=== PATIENT | female | born 1960 | race Caucasian/White ===

== ENCOUNTER 2024-01-28 12:31 | Emergency (ER) | payer MEDICARE, MEDICAID ==
[~2024-01-28] VITALS: Ht 165.1 cm; Wt 63.5 kg
[2024-01-28 12:39] VITALS: BP 139/86; PULSE 89; RESP 16; TEMP 97.8; O2SAT 91
[2024-01-28 13:49] LABS: BASOPHILS % (AUTO) 0.7 % (0.0-2.0); EOSINOPHILS # (AUTO) 0.1 K/uL (0-0.4); EOSINOPHILS % (AUTO) 2.3 % (0.0-4.0); HEMATOCRIT 35.3 % (36-48); HEMOGLOBIN 11.4 g/dL (12.0-16.0); LYMPHOCYTES % (AUTO) 27.1 % (20.5-51.1); MEAN CORPUSCULAR HEMOGLOBIN 30 pg (27-31); MEAN CORPUSCULAR HGB CONC 32 g/dL (33-37); MEAN CORPUSCULAR VOLUME 91.9 fL (80-94); MONOCYTES # (AUTO) 0.3 K/uL (0.8-1.0); MONOCYTES % (AUTO) 8.5 % (1.7-9.3); NEUTROPHILS # (AUTO) 2.3 K/uL (1.8-7.7); NEUTROPHILS % (AUTO) 61.4 % (42.2-75.2); PLATELET COUNT (AUTO) 189 K/uL (140-450); RED BLOOD CELL COUNT(AUTO) 3.84 MIL/uL (4.20-5.40); RED CELL DISTRIBUTION WIDTH 17.2 % (11.6-13.7); WHITE BLOOD COUNT (AUTO) 3.7 K/uL (4.8-10.8)
[2024-01-28 13:59] LABS: ANION GAP 12.3 (8-16); CALCIUM 8.8 mg/dL (8.5-10.1); CARBON DIOXIDE 22.8 mmol/L (21-32); CREATININE 1.4 mg/dL (0.6-1.3); POTASSIUM 4.1 mmol/L (3.5-5.1)
[2024-01-28] MEDS: FUROSEMIDE 40 MG/4 ML VIAL IVP ONE (14:56)
[2024-01-28 22:55] VITALS: BP 139/74; PULSE 98; RESP 26; TEMP 98; O2SAT 98
== END 2024-01-28 23:12 | disposition short-term general hospital (02) ==
LOC: MED 12:31
DX: I50.9 Heart failure, unspecified (principal); J96.91 Respiratory failure, unspecified with hypoxia; Z20.822 Contact with and (suspected) exposure to COVID-19; J44.9 Chronic obstructive pulmonary disease, unspecified; E78.5 Hyperlipidemia, unspecified; F17.210 Nicotine dependence, cigarettes, uncomplicated; Z88.8 Allergy status to other drugs, medicaments and biological substances
CPT/HCPCS: 36415; 71045; 80048; 83880; 84484; 85025; 87426; 93005; 96374; 99291; J1940

== ENCOUNTER 2024-05-01 14:19 | Inpatient (IN) | payer MEDICARE, MEDICAID ==
[~2024-05-01] VITALS: Ht 162.6 cm; Wt 59.0 kg
[2024-05-01 14:25] VITALS: BP 153/84; PULSE 74; RESP 20; TEMP 98.6; O2SAT 100
[2024-05-01 15:29] LABS: BASOPHILS % (AUTO) 0.4 % (0.0-2.0); HEMATOCRIT 36.1 % (36-48); HEMOGLOBIN 11.3 g/dL (12.0-16.0); LYMPHOCYTES # (AUTO) 0.7 K/uL (2.5-16.5); LYMPHOCYTES % (AUTO) 22.3 % (20.5-51.1); MEAN CORPUSCULAR HEMOGLOBIN 31 pg (27-31); MEAN CORPUSCULAR HGB CONC 31 g/dL (33-37); MEAN CORPUSCULAR VOLUME 98.6 fL (80-94); MONOCYTES # (AUTO) 0.2 K/uL (0.8-1.0); NEUTROPHILS # (AUTO) 2.2 K/uL (1.8-7.7); NEUTROPHILS % (AUTO) 69.3 % (42.2-75.2); PLATELET COUNT (AUTO) 155 K/uL (140-450); RED BLOOD CELL COUNT(AUTO) 3.67 MIL/uL (4.20-5.40); RED CELL DISTRIBUTION WIDTH 18.3 % (11.6-13.7); WHITE BLOOD COUNT (AUTO) 3.2 K/uL (4.8-10.8)
[2024-05-01 15:47] LABS: LIPASE 51 U/L (16-77)
[2024-05-01 15:52] LABS: ALBUMIN 2.9 g/dL (3.4-5.0); ANION GAP 15.3 (8-16); CALCIUM 8.5 mg/dL (8.5-10.1); CARBON DIOXIDE 20.6 mmol/L (21-32); CREATININE 2.1 mg/dL (0.6-1.3); POTASSIUM 3.9 mmol/L (3.5-5.1); TOTAL BILIRUBIN 0.9 mg/dL (0.0-1.0); TOTAL PROTEIN, SERUM 7.4 g/dL (6.4-8.2)
[2024-05-01 17:30] VITALS: O2SAT 100
[2024-05-01] MEDS ORDERED: ASPIRIN 81 MG TAB.CHEW ONE (17:56)
[2024-05-01] MEDS: ASPIRIN 81 MG TAB.CHEW PO ONE (18:02)
[2024-05-01] MEDS: FUROSEMIDE 40 MG/4 ML VIAL IVP SCH (18:20)
[2024-05-01] MEDS: ZOLPIDEM 5 MG TAB PO SCH (21:15)
[2024-05-01 21:19] VITALS: O2SAT 100
[2024-05-01 21:50] VITALS: BP 145/83; PULSE 84; RESP 18; TEMP 97.1; O2SAT 100
[2024-05-01] MEDS ORDERED: ONDANSETRON 4 MG/2 ML VIAL IVP PRN (22:00)
[2024-05-01] MEDS ORDERED: NITROGLYCERIN 0.4 MG TAB SL PRN (22:00)
[2024-05-01] MEDS ORDERED: ASPIRIN 81 MG TAB.CHEW PO SCH (22:00)
[2024-05-01] MEDS: carvediloL 3.125 MG TAB PO SCH (23:53)
[2024-05-02] VITALS: PULSE 89
[2024-05-02 04:00] VITALS: BP 136/89; PULSE 76; PULSE 79; PULSE 89; RESP 18; TEMP 97.8; O2SAT 100
[2024-05-02 05:53] LABS: BASOPHILS % (AUTO) 0.6 % (0.0-2.0); EOSINOPHILS # (AUTO) 0.1 K/uL (0-0.4); EOSINOPHILS % (AUTO) 2.3 % (0.0-4.0); HEMATOCRIT 34.4 % (36-48); HEMOGLOBIN 10.9 g/dL (12.0-16.0); MEAN CORPUSCULAR HEMOGLOBIN 31 pg (27-31); MEAN CORPUSCULAR HGB CONC 32 g/dL (33-37); MEAN CORPUSCULAR VOLUME 98.3 fL (80-94); MONOCYTES # (AUTO) 0.3 K/uL (0.8-1.0); MONOCYTES % (AUTO) 7.2 % (1.7-9.3); NEUTROPHILS # (AUTO) 2.4 K/uL (1.8-7.7); NEUTROPHILS % (AUTO) 63.9 % (42.2-75.2); PLATELET COUNT (AUTO) 138 K/uL (140-450); RED CELL DISTRIBUTION WIDTH 17.4 % (11.6-13.7); WHITE BLOOD COUNT (AUTO) 3.7 K/uL (4.8-10.8)
[2024-05-02 06:28] LABS: ALBUMIN 2.7 g/dL (3.4-5.0); ANION GAP 14.9 (8-16); CALCIUM 8.1 mg/dL (8.5-10.1); POTASSIUM 3.9 mmol/L (3.5-5.1); TOTAL BILIRUBIN 0.8 mg/dL (0.0-1.0)
[2024-05-02 08:00] VITALS: BP 129/69; PULSE 76; RESP 20; TEMP 97.1; O2SAT 98
[2024-05-02] MEDS: PANTOPRAZOLE 40 MG INJ VIAL IVP SCH (09:36)
[2024-05-02] MEDS: ASPIRIN 81 MG TAB.CHEW PO SCH (09:36)
[2024-05-02] MEDS: LOSARTAN 25 MG TAB PO SCH (09:37)
[2024-05-02 12:00] VITALS: BP 141/92; PULSE 83; RESP 20; TEMP 97.8; O2SAT 98
[2024-05-02 16:00] VITALS: BP 133/87; PULSE 83; RESP 20; TEMP 97.7; O2SAT 96
[2024-05-02] MEDS: FUROSEMIDE 20 MG/2 ML VIAL IVP SCH (17:02)
[2024-05-02] MEDS: HYDROcodone/APAP 5/325 MG 1 TAB TAB PO PRN (18:09)
[2024-05-02 20:00] VITALS: BP 126/79; PULSE 78; PULSE 82; RESP 19; RESP 23; TEMP 97.7; O2SAT 92; O2SAT 99
[2024-05-02] MEDS: QUEtiapine FUMARATE 25 MG TAB PO SCH (20:07)
[2024-05-02] MEDS: carvediloL 6.25 MG TAB PO SCH (20:08)
[2024-05-02] MEDS ORDERED: SIMVASTATIN 20 MG TAB PO SCH (21:00)
[2024-05-03] VITALS (7 sets, daily range): BP systolic 114–147; BP diastolic 66–83; PULSE 71–81; RESP 18–23; TEMP 97.4–98; O2SAT 92–100
[2024-05-03 07:03] LABS: BASOPHILS % (AUTO) 0.9 % (0.0-2.0); EOSINOPHILS # (AUTO) 0.1 K/uL (0-0.4); EOSINOPHILS % (AUTO) 2.8 % (0.0-4.0); HEMATOCRIT 32.4 % (36-48); HEMOGLOBIN 10.3 g/dL (12.0-16.0); LYMPHOCYTES % (AUTO) 30.6 % (20.5-51.1); MEAN CORPUSCULAR HEMOGLOBIN 31 pg (27-31); MEAN CORPUSCULAR HGB CONC 32 g/dL (33-37); MEAN CORPUSCULAR VOLUME 97.4 fL (80-94); MONOCYTES # (AUTO) 0.3 K/uL (0.8-1.0); MONOCYTES % (AUTO) 9.9 % (1.7-9.3); NEUTROPHILS # (AUTO) 1.8 K/uL (1.8-7.7); NEUTROPHILS % (AUTO) 55.8 % (42.2-75.2); PLATELET COUNT (AUTO) 132 K/uL (140-450); RED BLOOD CELL COUNT(AUTO) 3.33 MIL/uL (4.20-5.40); RED CELL DISTRIBUTION WIDTH 17.4 % (11.6-13.7); WHITE BLOOD COUNT (AUTO) 3.2 K/uL (4.8-10.8)
[2024-05-03 08:06] LABS: ALBUMIN 2.3 g/dL (3.4-5.0); ANION GAP 13.9 (8-16); CARBON DIOXIDE 20.1 mmol/L (21-32); CREATININE 1.9 mg/dL (0.6-1.3); TOTAL BILIRUBIN 0.9 mg/dL (0.0-1.0); TOTAL PROTEIN, SERUM 6.3 g/dL (6.4-8.2)
[2024-05-03] MEDS: LOSARTAN 25 MG TAB PO SCH (08:39)
[2024-05-03] MEDS: ATORVASTATIN 20 MG TAB PO SCH (08:39)
[2024-05-03] MEDS ORDERED: QUET25TA46 PO (09:30)
[2024-05-03] MEDS ORDERED: FURO-572 PO (09:30)
[2024-05-03] MEDS ORDERED: LOSA-269 PO (09:30)
[2024-05-03] MEDS ORDERED: CARV6.252 PO (09:30)
[2024-05-04 04:00] VITALS: BP 126/69; RESP 18; TEMP 97.5; O2SAT 97
[2024-05-04 07:26] LABS: BASOPHILS % (AUTO) 0.6 % (0.0-2.0); EOSINOPHILS # (AUTO) 0.1 K/uL (0-0.4); EOSINOPHILS % (AUTO) 2.2 % (0.0-4.0); HEMATOCRIT 34.5 % (36-48); HEMOGLOBIN 10.8 g/dL (12.0-16.0); LYMPHOCYTES # (AUTO) 0.8 K/uL (2.5-16.5); LYMPHOCYTES % (AUTO) 23.9 % (20.5-51.1); MEAN CORPUSCULAR HEMOGLOBIN 31 pg (27-31); MEAN CORPUSCULAR HGB CONC 31 g/dL (33-37); MEAN CORPUSCULAR VOLUME 97.5 fL (80-94); MONOCYTES # (AUTO) 0.3 K/uL (0.8-1.0); MONOCYTES % (AUTO) 10.2 % (1.7-9.3); NEUTROPHILS # (AUTO) 2.1 K/uL (1.8-7.7); NEUTROPHILS % (AUTO) 63.1 % (42.2-75.2); PLATELET COUNT (AUTO) 130 K/uL (140-450); RED BLOOD CELL COUNT(AUTO) 3.54 MIL/uL (4.20-5.40); RED CELL DISTRIBUTION WIDTH 17.1 % (11.6-13.7); WHITE BLOOD COUNT (AUTO) 3.4 K/uL (4.8-10.8)
[2024-05-04 08:00] VITALS: BP 135/79; PULSE 62; RESP 18; TEMP 96.4; O2SAT 100
[2024-05-04] MEDS: LORazepam 1 MG TAB PO PRN (10:42)
[2024-05-04 16:00] VITALS: BP 132/74; PULSE 74; RESP 18; TEMP 97.4; O2SAT 98
[2024-05-04 20:00] VITALS: BP 175/80; PULSE 62; PULSE 87; RESP 18; RESP 21; TEMP 98.3; O2SAT 100; O2SAT 96
[2024-05-04 20:05] VITALS: BP 153/85
[2024-05-05 07:39] LABS: BASOPHILS % (AUTO) 0.4 % (0.0-2.0); EOSINOPHILS # (AUTO) 0.1 K/uL (0-0.4); EOSINOPHILS % (AUTO) 2.7 % (0.0-4.0); HEMOGLOBIN 10.1 g/dL (12.0-16.0); LYMPHOCYTES % (AUTO) 27.7 % (20.5-51.1); MEAN CORPUSCULAR HEMOGLOBIN 31 pg (27-31); MEAN CORPUSCULAR HGB CONC 32 g/dL (33-37); MEAN CORPUSCULAR VOLUME 97.4 fL (80-94); MONOCYTES # (AUTO) 0.4 K/uL (0.8-1.0); MONOCYTES % (AUTO) 12.9 % (1.7-9.3); NEUTROPHILS % (AUTO) 56.3 % (42.2-75.2); PLATELET COUNT (AUTO) 124 K/uL (140-450); RED BLOOD CELL COUNT(AUTO) 3.28 MIL/uL (4.20-5.40); RED CELL DISTRIBUTION WIDTH 16.6 % (11.6-13.7); WHITE BLOOD COUNT (AUTO) 3.5 K/uL (4.8-10.8)
[2024-05-05 08:31] VITALS: PULSE 68; RESP 20; O2SAT 99
[2024-05-05 11:13] LABS: ANION GAP 10.6 (8-16); CALCIUM 8.1 mg/dL (8.5-10.1); CARBON DIOXIDE 24.4 mmol/L (21-32); CREATININE 1.6 mg/dL (0.6-1.3)
== END 2024-05-05 16:30 | DRG 206 ==
LOC: MED 14:19 → MTU 18:11
PROVIDERS: ADMIT Student in an Organized Health Care Education/Training Program; ATTEND Student in an Organized Health Care Education/Training Program
DX: M94.0 Chondrocostal junction syndrome [Tietze] (principal); J44.1 Chronic obstructive pulmonary disease with (acute) exacerbation; E44.1 Mild protein-calorie malnutrition; N17.9 Acute kidney failure, unspecified; K50.90 Crohn's disease, unspecified, without complications; R45.851 Suicidal ideations; R65.10 Systemic inflammatory response syndrome (SIRS) of non-infectious origin without acute organ dysfunction; I50.9 Heart failure, unspecified; F32.A Depression, unspecified; F17.200 Nicotine dependence, unspecified, uncomplicated; F20.9 Schizophrenia, unspecified; Z88.1 Allergy status to other antibiotic agents; Z68.22 Body mass index [BMI] 22.0-22.9, adult; R06.03 Acute respiratory distress
CPT/HCPCS: 36415; 71045; 80048; 80053; 83690; 83880; 84484; 85025; 93005; 96374; 97110; 97116; 97163-GP; 97530; 99285; J1940; J2470; Q0092

== ENCOUNTER 2024-05-15 18:00 | Emergency (ER) | payer MEDICARE, MEDICAID ==
[~2024-05-15] VITALS: Ht 167.6 cm; Wt 63.5 kg
[~2024-05-15 18:00] MED LIST: CARV6.252 PO; FURO-572 PO; LOSA-269 PO; QUET25TA46 PO
[2024-05-15 18:23] VITALS: BP 136/78; PULSE 74; RESP 18; TEMP 97.9; O2SAT 90
[2024-05-15] MEDS: metroNIDAZOLE 500 MG/NS PREMIX 100 ML IV ONE (19:13)
[2024-05-15 19:27] LABS: BASOPHILS % (AUTO) 0.6 % (0.0-2.0); EOSINOPHILS # (AUTO) 0.1 K/uL (0-0.4); EOSINOPHILS % (AUTO) 3.8 % (0.0-4.0); HEMATOCRIT 31.7 % (36-48); HEMOGLOBIN 10.1 g/dL (12.0-16.0); LYMPHOCYTES # (AUTO) 0.9 K/uL (2.5-16.5); LYMPHOCYTES % (AUTO) 27.9 % (20.5-51.1); MEAN CORPUSCULAR HEMOGLOBIN 30 pg (27-31); MEAN CORPUSCULAR HGB CONC 32 g/dL (33-37); MEAN CORPUSCULAR VOLUME 95.5 fL (80-94); MONOCYTES # (AUTO) 0.3 K/uL (0.8-1.0); MONOCYTES % (AUTO) 8.1 % (1.7-9.3); NEUTROPHILS # (AUTO) 1.9 K/uL (1.8-7.7); NEUTROPHILS % (AUTO) 59.6 % (42.2-75.2); PLATELET COUNT (AUTO) 148 K/uL (140-450); RED BLOOD CELL COUNT(AUTO) 3.32 MIL/uL (4.20-5.40); RED CELL DISTRIBUTION WIDTH 16.5 % (11.6-13.7); WHITE BLOOD COUNT (AUTO) 3.1 K/uL (4.8-10.8)
[2024-05-15 19:31] LABS: ANION GAP 15.6 (8-16); CALCIUM 9.3 mg/dL (8.5-10.1); CARBON DIOXIDE 24.5 mmol/L (21-32); CREATININE 1.3 mg/dL (0.6-1.3); POTASSIUM 4.1 mmol/L (3.5-5.1)
[2024-05-15] MEDS ORDERED: SACU1TAB PO (20:06)
[2024-05-15] MEDS ORDERED: METO25TE2 PO (20:06)
[2024-05-15] MEDS ORDERED: FURO-572 PO (20:06)
[2024-05-15] MEDS ORDERED: SPIR50TA PO (20:06)
[2024-05-15] MEDS ORDERED: SYN.05 PO (20:06)
[2024-05-15] MEDS ORDERED: CARV12.5 PO (20:06)
[2024-05-15] MEDS ORDERED: ESCI5TAB PO (20:06)
[2024-05-15] MEDS ORDERED: METR-435 PO (23:43)
[2024-05-16 05:21] VITALS: BP 132/88; PULSE 83; RESP 17; TEMP 98; O2SAT 97
== END 2024-05-16 05:21 | disposition home or self-care (01) ==
LOC: MED 18:00
DX: K52.9 Noninfective gastroenteritis and colitis, unspecified (principal); I50.9 Heart failure, unspecified; F17.210 Nicotine dependence, cigarettes, uncomplicated; J44.9 Chronic obstructive pulmonary disease, unspecified; K21.9 Gastro-esophageal reflux disease without esophagitis; I10 Essential (primary) hypertension; Z90.49 Acquired absence of other specified parts of digestive tract; Z98.890 Other specified postprocedural states; Z79.899 Other long term (current) drug therapy; Z88.8 Allergy status to other drugs, medicaments and biological substances
CPT/HCPCS: 36415; 74176; 80048; 83880; 84484; 85025; 87040; 93005; 96365; 99285; J3490; J7030

== ENCOUNTER 2024-06-02 14:03 | Emergency (ER) | payer MEDICARE, MEDICAID ==
[~2024-06-02] VITALS: Ht 162.6 cm; Wt 63.5 kg
[~2024-06-02 14:03] MED LIST changes: +CARV12.5 PO; +ESCI5TAB PO; +METO25TE2 PO; +METR-435 PO; +SACU1TAB PO; +SPIR50TA PO; +SYN.05 PO
[2024-06-02 14:10] VITALS: BP 137/63; PULSE 68; RESP 20; TEMP 98; O2SAT 97
[2024-06-02 14:33] VITALS: TEMP 98
[2024-06-02 14:35] LABS: BASOPHILS % (AUTO) 0.9 % (0.0-2.0); EOSINOPHILS # (AUTO) 0.1 K/uL (0-0.4); EOSINOPHILS % (AUTO) 1.3 % (0.0-4.0); HEMATOCRIT 34.2 % (36-48); LYMPHOCYTES % (AUTO) 20.7 % (20.5-51.1); MEAN CORPUSCULAR HEMOGLOBIN 31 pg (27-31); MEAN CORPUSCULAR HGB CONC 32 g/dL (33-37); MEAN CORPUSCULAR VOLUME 96.3 fL (80-94); MONOCYTES # (AUTO) 0.5 K/uL (0.8-1.0); MONOCYTES % (AUTO) 10.4 % (1.7-9.3); NEUTROPHILS # (AUTO) 3.1 K/uL (1.8-7.7); NEUTROPHILS % (AUTO) 66.7 % (42.2-75.2); PLATELET COUNT (AUTO) 160 K/uL (140-450); RED BLOOD CELL COUNT(AUTO) 3.55 MIL/uL (4.20-5.40); RED CELL DISTRIBUTION WIDTH 18.4 % (11.6-13.7); WHITE BLOOD COUNT (AUTO) 4.7 K/uL (4.8-10.8)
[2024-06-02 14:42] LABS: ANION GAP 15.1 (8-16); CALCIUM 9.5 mg/dL (8.5-10.1); CARBON DIOXIDE 23.5 mmol/L (21-32); CREATININE 1.7 mg/dL (0.6-1.3); POTASSIUM 4.6 mmol/L (3.5-5.1)
[2024-06-02 14:53] LABS: INR 1.46 (0.8-1.2); PARTIAL THROMBOPLASTIN TIME 25.1 secs (22-35.6)
[2024-06-02 15:04] LABS: MAGNESIUM 1.6 mg/dL (1.8-2.4); PHOSPHORUS 4.9 mg/dL (2.5-4.9)
[2024-06-02] MEDS: FUROSEMIDE 20 MG TAB PO ONE (16:05)
[2024-06-02 16:35] VITALS: BP 139/81; PULSE 69; RESP 20; O2SAT 100
== END 2024-06-02 16:35 | disposition home or self-care (01) ==
LOC: MED 14:03
DX: I11.0 Hypertensive heart disease with heart failure (principal); I50.9 Heart failure, unspecified; J44.9 Chronic obstructive pulmonary disease, unspecified; K21.9 Gastro-esophageal reflux disease without esophagitis; F17.210 Nicotine dependence, cigarettes, uncomplicated; Z90.710 Acquired absence of both cervix and uterus; Z98.890 Other specified postprocedural states; Z79.899 Other long term (current) drug therapy; Z88.1 Allergy status to other antibiotic agents; Z88.8 Allergy status to other drugs, medicaments and biological substances
CPT/HCPCS: 36415; 71045; 80048; 83735; 83880; 84100; 84484; 85025; 85610; 85730; 93005; 99285